=== PATIENT | male | born 1950 | race Caucasian/White ===

== ENCOUNTER 2017-09-20 07:38 | Emergency (ER) | payer OTHER ==
[~2017-09-20] VITALS: Ht 185.4 cm; Wt 97.7 kg
[~2017-09-20 07:38] MED LIST: AMOXICILLIN125 MG PO; ASPIR 8181 M1 PO; AUGMENTIN875 MG PO; BYSTOLIC5 MG; COREG3.125 M1 PO; FLOMAX0.4 MG PO; FLONASE16 G1 BOTH NARES; HYDROCHLOROTHIA25 MG PO; HYDROCODON-ACE1 EAC8 PO; LISINOPRIL40 MG PO; Lisinopril PO; MULTIVITAMIN1 EAC2 PO; NICOTINE PATCH1 EAC2 TD; NITROSTAT0.4 MG SL; PANTOPRAZOLE SO40 MG PO; PERCOCET 5/31 TABLET PO; PREDNISONE10 M1 PO; PREDNISONE10 MG PO; ZOFRAN ODT4 MG PO
[2017-09-20 09:07] LABS: BASOPHIL COUNT 0.1 K/uL (0-0.1); EOSINOPHIL (%) 1.5 % (0-5); EOSINOPHIL COUNT 0.1 K/uL (0-0.3); HEMATOCRIT 42.6 % (38.0-50.0); IMMATURE GRANULOCYTE (%) 0.2 % (0.0-0.7); INSTRUMENT ABS NEUTROPHIL CT 6.2 K/uL; LYMPHOCYTE COUNT 1.7 K/uL (1.0-2.8); MCH 31.8 PG (29.0-34.0); MCHC 33.6 G/DL (30.0-36.0); MCV 94.7 FL (86-99); MEAN PLAT.VOLUME 9.9 uM^3 (9.0-12.4); MONOCYTE (%) 10.4 % (3-12); MONOCYTE COUNT 0.9 K/uL (0-0.8); NEUTROPHIL (%) 68.1 % (45-76); NEUTROPHIL COUNT 6.2 K/uL (1.8-6.4); PLATELET COUNT 289 K/uL (156-360); RBC DIS.WIDTH-CV 13.4 % (11.8-14.6); RBC DIS.WIDTH-SD 47.2 % (39-53); WHITE BLOOD COUNT 9.1 K/uL (4.1-10.2)
[2017-09-20 09:21] LABS: CHLORIDE 105 mEq/L (99-109); POTASSIUM 4.2 mEq/L (3.7-5.4); SODIUM 141 mEq/L (136-147)
[2017-09-20 09:23] LABS: GLUCOSE 96 mg/dL (70-99)
[2017-09-20 09:25] LABS: ANION GAP 10 MEQ/L (2-14)
[2017-09-20 09:27] LABS: GFR ESTIMATE (CALCULATED) > 59 mL/min/
[2017-09-20 09:28] LABS: TROP-I INTERPRETATION NEGATIVE; TROPONIN-I < 0.01 ng/mL (0.0-0.30); UREA NITROGEN (BUN) 19 mg/dL (9-23)
[2017-09-20 12:09] VITALS: BP 122/78
== END 2017-09-20 12:10 | disposition home or self-care (01) ==
LOC: EME 07:38
PROVIDERS: Emergency Medicine
DX: R42 Dizziness and giddiness (principal); J40 Bronchitis, not specified as acute or chronic; I10 Essential (primary) hypertension; F17.200 Nicotine dependence, unspecified, uncomplicated; N40.0 Benign prostatic hyperplasia without lower urinary tract symptoms; Z85.9 Personal history of malignant neoplasm, unspecified
CPT/HCPCS: 70450; 71010; 80048; 84484; 85025; 93005; 99281; 99285

== ENCOUNTER 2017-10-09 09:09 | Emergency (ER) | payer OTHER ==
[~2017-10-09] VITALS: Ht 185.4 cm; Wt 96.6 kg
[2017-10-09 09:36] LABS: BASOPHIL (%) 0.5 % (0-1); EOSINOPHIL (%) 4.2 % (0-5); EOSINOPHIL COUNT 0.3 K/uL (0-0.3); HEMATOCRIT 46.8 % (38.0-50.0); HEMOGLOBIN 15.6 G/DL (12.5-16.6); IMMATURE GRANULOCYTE (%) 0.2 % (0.0-0.7); LYMPHOCYTE (%) 20.6 % (15-42); LYMPHOCYTE COUNT 1.7 K/uL (1.0-2.8); MCH 31.6 PG (29.0-34.0); MCHC 33.3 G/DL (30.0-36.0); MCV 94.7 FL (86-99); MONOCYTE (%) 11.6 % (3-12); MONOCYTE COUNT 0.9 K/uL (0-0.8); NEUTROPHIL (%) 62.9 % (45-76); NEUTROPHIL COUNT 5.1 K/uL (1.8-6.4); PLATELET COUNT 284 K/uL (156-360); RBC DIS.WIDTH-CV 13.6 % (11.8-14.6); RBC DIS.WIDTH-SD 47.5 % (39-53); RED BLOOD COUNT 4.94 M/uL (4.00-5.50); WHITE BLOOD COUNT 8.1 K/uL (4.1-10.2)
[2017-10-09 09:44] LABS: ALBUMIN 3.9 g/dL (3.2-4.8)
[2017-10-09 09:45] LABS: CHLORIDE 107 mEq/L (99-109); POTASSIUM 4.1 mEq/L (3.7-5.4); SODIUM 137 mEq/L (136-147)
[2017-10-09 09:47] LABS: GLUCOSE 91 mg/dL (70-99); TOTAL PROTEIN 6.6 g/dL (6.4-8.3)
[2017-10-09 09:49] LABS: TOTAL BILIRUBIN 0.8 mg/dL (0.0-1.0)
[2017-10-09 09:50] LABS: ALKALINE PHOSPHATASE 86 IU/L (3-129)
[2017-10-09 09:51] LABS: CREATININE 0.8 mg/dL (0.6-1.3); GFR ESTIMATE (CALCULATED) > 59 mL/min/ (58.99-99999)
[2017-10-09 09:52] LABS: AST (GOT) 29 IU/L (2-34); UREA NITROGEN (BUN) 17 mg/dL (9-23)
[2017-10-09 09:53] LABS: ALT (GPT) 35 IU/L (3-49)
[2017-10-09 09:54] LABS: LIPASE 13 U/L (1.0-51.0)
[2017-10-09 10:41] LABS: APPEARANCE CLEAR ((CLEAR)); BILIRUBIN NEGATIVE; BLOOD SMALL; COLOR YELLOW ((YELLOW)); GLUCOSE (STRIP) NEGATIVE; KETONES NEGATIVE; LEUKOCYTES NEGATIVE; NITRITE NEGATIVE; PROTEIN (STRIP) NEGATIVE; SPECIFIC GRAVITY 1.015 (1.000-1.030); UROBILINOGEN 0.2 MG/DL (0.2-1.0)
[2017-10-09 10:51] LABS: BACTERIA NONE SEEN /HPF; EPITHELIAL CELLS RARE /HPF; HYALINE CASTS 0-5 /LPF; MUCUS 2+ /LPF; RED BLOOD CELLS 0-5 /HPF (0-5); UCUL ADDED? NO; WHITE BLOOD CELLS 0-5 /HPF (0-5)
[2017-10-09] MEDS ORDERED: IMODIUM A-D2 M2 PO (12:28)
[2017-10-09] MEDS ORDERED: ZOFRAN4 MG PO (12:28)
[2017-10-09 12:45] VITALS: BP 174/93
== END 2017-10-09 12:45 | disposition home or self-care (01) ==
LOC: EME 09:09
PROVIDERS: Emergency Medicine
DX: R19.7 Diarrhea, unspecified (principal); R11.10 Vomiting, unspecified; I10 Essential (primary) hypertension; N40.0 Benign prostatic hyperplasia without lower urinary tract symptoms; F17.200 Nicotine dependence, unspecified, uncomplicated; Z85.9 Personal history of malignant neoplasm, unspecified; Z90.89 Acquired absence of other organs
CPT/HCPCS: 74177; 80053; 81003; 83690; 85025; 99281; 99285; J7030